=== PATIENT | male | born 1950 | race Caucasian/White ===

== ENCOUNTER 2023-11-20 17:40 | Emergency (ER) | payer MEDICARE ==
[2023-11-20] MEDS ORDERED: Tamsulosin 0.4 MG Cap.ER ONE ×2 (18:52→19:00)
== END 2023-11-20 19:03 | disposition home or self-care (01) ==
LOC: LB.ED 17:40
DX: R35.0 Frequency of micturition (principal); I25.10 Atherosclerotic heart disease of native coronary artery without angina pectoris; Z95.1 Presence of aortocoronary bypass graft; Z95.5 Presence of coronary angioplasty implant and graft; Z79.01 Long term (current) use of anticoagulants; Z79.84 Long term (current) use of oral hypoglycemic drugs; Z79.899 Other long term (current) drug therapy; Z79.51 Long term (current) use of inhaled steroids; Z88.6 Allergy status to analgesic agent
CPT/HCPCS: 99283; A9270; 99284